=== PATIENT | female | born 1955 | race Caucasian/White ===

== ENCOUNTER → 2017-04-25 | Outpatient (CLI) | payer BC | LOC: MC.RAD 11:15 | DX: Z12.31 Encounter for screening mammogram for malignant neoplasm of breast (principal) ==

== ENCOUNTER → 2018-05-24 | Outpatient (CLI) | payer BC | LOC: MC.RAD 09:57 | DX: Z12.31 Encounter for screening mammogram for malignant neoplasm of breast (principal) ==

== ENCOUNTER → 2020-03-02 | Outpatient (CLI) | payer BC | LOC: MC.RAD 09:06 | DX: Z12.31 Encounter for screening mammogram for malignant neoplasm of breast (principal); Z00.00 Encounter for general adult medical examination without abnormal findings; M16.11 Unilateral primary osteoarthritis, right hip ==

== ENCOUNTER → 2021-03-11 | Outpatient (CLI) | payer MEDICARE | LOC: MC.RAD 10:45 | DX: Z12.31 Encounter for screening mammogram for malignant neoplasm of breast (principal) ==

== ENCOUNTER → 2022-02-02 | Outpatient (CLI) | payer MEDICARE, OTHER | LOC: COL.RAD 08:22 | DX: M25.551 Pain in right hip (principal) | CPT/HCPCS: J3301; Q9967 ==

== ENCOUNTER 2023-12-29 05:55 | Outpatient (CLI) | payer MEDICARE, OTHER ==
[2023-12-29] VITALS (25 sets, daily range): BP systolic 118–159; BP diastolic 57–83; PULSE 55–75; TEMP 97.9
[~2023-12-29] VITALS: Ht 154.9 cm; Wt 65.0 kg
[2023-12-29] MEDS ORDERED: VITAMIN B12 781 TAB PO (06:30)
[2023-12-29] MEDS ORDERED: VITAMIN D31000 I1 PO (06:31)
[2023-12-29] MEDS ORDERED: EYE MULTIVITAM1 EAC1 PO (06:31)
[2023-12-29] MEDS ORDERED: fentaNYL 50 MCG/ML 2 ML VIAL IV SCH (08:09)
[2023-12-29] MEDS ORDERED: Midazolam 2 MG/2 ML VIAL IV SCH (09:04)
--- NOTE | 2023-12-29 09:18 | NUR ---
SPECIMEN TAKEN AT 0809.
== END 2023-12-29 14:09 | disposition home or self-care (01) ==
LOC: COL.RAD 05:55
DX: R91.1 Solitary pulmonary nodule (principal); J93.9 Pneumothorax, unspecified; C91.10 Chronic lymphocytic leukemia of B-cell type not having achieved remission
CPT/HCPCS: J2250; J3010